=== PATIENT | male | born 1995 | race Caucasian/White ===

== ENCOUNTER 2018-04-10 18:31 | Emergency (ER) | payer SELFPAY ==
[~2018-04-10] VITALS: Ht 167.6 cm; Wt 80.0 kg
[2018-04-10 18:39] VITALS: BP 131/85
== END 2018-04-10 19:30 | disposition left against medical advice (07) ==
LOC: ER 18:31
DX: F91.8 Other conduct disorders (principal); Z53.21 Procedure and treatment not carried out due to patient leaving prior to being seen by health care provider